=== PATIENT | female | born 2005 ===

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

== ENCOUNTER 2025-01-16 22:10 | Emergency (ER) | payer MEDICAID | END 2025-01-16 23:55 | disposition home or self-care (01) | LOC: DL.ED 22:10 | DX: J06.9 Acute upper respiratory infection, unspecified (principal); Z79.899 Other long term (current) drug therapy | CPT/HCPCS: 87081; 87428-QW; 87430; 99282; 99284 ==